=== PATIENT | male | born 1990 | race Caucasian/White ===

== ENCOUNTER 2018-04-09 01:31 | Inpatient (IN) ==
[2018-04-09] MEDS ORDERED: ceFAZolin 2 GM Premix Inj 2 GM/50 ML PIGGYBACK IV.SIG ONE (01:39)
[2018-04-09] MEDS ORDERED: Diphtheria/Tetanus/Pertussis Vaccine Inj 0.5 ML Syringe IM ONE (01:39)
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
[2018-04-09 02:04] LABS: Baso # (Auto) 0.1 th/mm3 (0.0-0.2); Baso % (Auto) 0.8 % (0.0-2.0); Eos % (Auto) 0.3 % (0.0-4.0); Hematocrit 45.2 % (39.0-51.0); Hemoglobin 15.7 gm/dL (13.0-17.0); Lymph # (Auto) 2.1 th/mm3 (1.0-4.8); Lymph % (Auto) 31.1 % (9.0-44.0); Mean Corpuscular HGB Conc 34.8 % (32.0-36.0); Mean Corpuscular Hemoglobin 31.6 pg (27.0-34.0); Mean Corpuscular Volume 90.8 fL (80.0-100.0); Mean Platelet Volume 8.2 fL (7.0-11.0); Mono # (Auto) 0.4 th/mm3 (0.0-0.9); Mono % (Auto) 5.4 % (0.0-8.0); Neut # (Auto) 4.1 th/mm3 (1.8-7.7); Neut % (Auto) 62.4 % (16.0-70.0); Platelet Count 251 th/mm3 (150-450); Red Blood Count 4.98 mil/mm3 (4.50-5.90); Red Cell Distribution Width 13.2 % (11.6-17.2); White Blood Count 6.6 th/mm3 (4.0-11.0)
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
[2018-04-09 02:19] LABS: Activated Partial Thrombo Time 20.8 sec (23.4-31.7); INR 1.1 Ratio; Prothrombin Time 11.2 sec (9.8-11.6)
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
[2018-04-09] MEDS ORDERED: ceFAZolin 2 GM IV; once IV.SIG ONE (02:30)
[2018-04-09] MEDS ORDERED: Sod Chloride 0.9% Inj 1,000 ML IV.SIG SCH (02:30)
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
[2018-04-09] MEDS ORDERED: Morphine Inj 4 MG/ML Vial IV.PUSH ONE (03:34)
[2018-04-09 03:47] LABS: Amphetamine Screen,Urine Neg (Neg); Barbiturate Screen,Urine Neg (Neg); Cannabinoid Screen,Urine Neg (Neg); Cocaine Screen,Urine Neg (Neg)
[2018-04-09 03:48] LABS: Opiate Screen,Urine Neg (Neg)
[2018-04-09] MEDS ORDERED: Morphine Sulfate Inj 2 MG/ML Vial IV.PUSH PRN ×2 (05:57→06:27)
[2018-04-09] MEDS ORDERED: Sod Chloride 0.9% Inj 1,000 ML IV.CONT SCH (06:30)
[2018-04-09] MEDS ORDERED: Pantoprazole Inj 40 MG Vial IV.PUSH SCH (07:00)
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
[2018-04-09] MEDS ORDERED: Multivitamin Inj 10 ML, Thiamine Inj 100 MG, Folic Acid Inj 1 MG in Sodium Chlor 0.9% I... IV.SIG SCH (08:00)
[2018-04-09 08:45] VITALS: RESP 18
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
[2018-04-09] MEDS ORDERED: Lidocaine 5% Patch T-DERMAL SCH (09:00)
[2018-04-09] MEDS ORDERED: Docusate Sodium 100 MG Capsule PO SCH (09:00)
[2018-04-09 12:53] VITALS: BP 133/63; PULSE 82; TEMP 99.6; O2SAT 95
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
[2018-04-09] MEDS ORDERED: Methocarbamol 500 MG Tablet PO SCH (14:00)
[2018-04-10] MEDS ORDERED: Chlorhexidine Gluconate 2% 1 Pack (2 Cloths) TOPICAL SCH (04:00)
[2018-04-10] MEDS ORDERED: Chlorhexidine Gluconate 2% 1 Pack (2 Cloths) TOPICAL PRN (04:00)
== END 2018-04-09 14:41 | disposition home or self-care (01) ==
LOC: NEDA 01:31 → NEPC 01:31 → NEPHCDU 04:19
PROVIDERS: ADMIT Surgery; ATTEND Surgery